=== PATIENT | female | born 1975 | race Caucasian/White ===

== ENCOUNTER 2018-02-22 06:53 | Emergency (ER) | payer OTHER ==
[~2018-02-22] VITALS: Ht 160 cm; Wt 93.9 kg
[~2018-02-22 06:53] MED LIST: ASPIR 8181 MG PO; LISINOPRIL10 MG PO; LORAZEPAM1 MG PO; METFORMIN HCL500 MG PO
[2018-02-22 09:16] VITALS: BP 132/71
== END 2018-02-22 09:16 | disposition home or self-care (01) ==
LOC: ED 06:53
DX: J06.9 Acute upper respiratory infection, unspecified (principal); I50.9 Heart failure, unspecified; E11.9 Type 2 diabetes mellitus without complications; Z88.0 Allergy status to penicillin
CPT/HCPCS: J7512

== ENCOUNTER 2018-11-16 13:39 | Emergency (ER) | payer OTHER ==
[~2018-11-16] VITALS: Ht 160 cm; Wt 94.8 kg
[2018-11-16 13:42] VITALS: BP 126/70; Ht 160 cm; Wt 94.8 kg
== END 2018-11-16 14:13 | disposition home or self-care (01) ==
LOC: ED 13:39
DX: N39.0 Urinary tract infection, site not specified (principal); I11.0 Hypertensive heart disease with heart failure; I50.9 Heart failure, unspecified; Z88.0 Allergy status to penicillin
CPT/HCPCS: 82962

== ENCOUNTER 2019-02-09 10:21 | Emergency (ER) | payer OTHER ==
[~2019-02-09] VITALS: Ht 160 cm; Wt 94.8 kg
[2019-02-09 10:32] VITALS: Ht 160 cm; Wt 94.8 kg
[2019-02-09 11:17] VITALS: BP 128/68
== END 2019-02-09 11:17 | disposition home or self-care (01) ==
LOC: ED 10:21
DX: J20.9 Acute bronchitis, unspecified (principal); I11.0 Hypertensive heart disease with heart failure; I50.9 Heart failure, unspecified; Z88.0 Allergy status to penicillin

== ENCOUNTER 2019-04-09 22:12 | Emergency (ER) | payer OTHER ==
[~2019-04-09] VITALS: Ht 160 cm; Wt 95.9 kg
[2019-04-09 22:21] VITALS: BP 112/51; Ht 160 cm; Wt 95.9 kg
== END 2019-04-09 23:38 | disposition home or self-care (01) ==
LOC: ED 22:12
DX: S71.132A Puncture wound without foreign body, left thigh, initial encounter (principal); S70.12XA Contusion of left thigh, initial encounter; I11.0 Hypertensive heart disease with heart failure; I50.9 Heart failure, unspecified; Z88.0 Allergy status to penicillin; W54.0XXA Bitten by dog, initial encounter; Y93.89 Activity, other specified; Y92.89 Other specified places as the place of occurrence of the external cause; Y99.8 Other external cause status